=== PATIENT | male | born 1955 | race Caucasian/White ===

== ENCOUNTER 2017-10-18 18:44 | Emergency (ER) | payer BC, OTHER ==
[2017-10-18] MEDS ORDERED: PROCAINAMIDE 1,000 MG in SODIUM CHLORIDE 0.9% 240 ML IV STA (19:40)
--- NOTE | 2017-10-18 19:42 | ED Physician Documentation ---
PD HPI CHEST PAIN - Stated complaint Stated Complaint: HEART PALPITATIONS - Chief complaint Chief Complaint: Cardiac - History obtained from History obtained from: Patient - History of Present Illness Timing - onset: Today (This is a very pleasant 62-year-old gentleman with history of aortic valve replacement, mechanical valve maintained on warfarin. He is also on metoprolol. He has recurrent atrial fibrillation about once a month and has had it for the last few hours. He usually responds to procainamide drip.) Review of Systems Constitutional: denies: Fever, Chills Cardiac: reports: Palpitations. denies: Chest pain / pressure, Pedal edema, Calf pain Respiratory: denies: Dyspnea PD PAST MEDICAL HISTORY - Allergies Allergies/Adverse Reactions: Allergies Allergy/AdvReac Type Severity Reaction Status Date / Time Penicillins Allergy Hives Verified 10/18/17 18:58 PD ED PE NORMAL - Vitals Vital signs reviewed: Yes - General General: Alert and oriented X 3, No acute distress - HEENT HEENT: PERRL, EOMI - Neck Neck: Supple, no meningeal sign, No bony TTP - Cardiac Cardiac: Other (Irregularly irregular with closing click) - Respiratory Respiratory: No respiratory distress, Clear bilaterally - Abdomen Abdomen: Non tender - Neuro Neuro: Alert and oriented X 3, Normal speech - Psych Psych: Normal mood, Normal affect Results - Vitals Vitals: Vital Signs - 24 hr 10/18/17 10/18/17 10/18/17 18:53 20:07 20:10 Temperature 36.2 C L Heart Rate 109 H 98 98 Respiratory 16 16 16 Rate Blood Pressure 140/74 H 114/71 119/81 H O2 Saturation 100 96 10/18/17 10/18/17 10/18/17 20:15 20:20 20:25 Temperature Heart Rate 93 99 95 Respiratory 16 Rate Blood Pressure 137/75 H 112/93 H 121/84 H O2 Saturation 96 96 96 10/18/17 10/18/17 10/18/17 20:30 20:40 20:50 Temperature Heart Rate 94 103 H 100 Respiratory 16 16 16 Rate Blood Pressure 129/100 H 115/65 117/70 O2 Saturation 96 96 96 10/18/17 10/18/17 20:55 21:05 Temperature Heart Rate 63 64 Respiratory 16 Rate Blood Pressure 117/70 113/62 O2 Saturation 97 96 Oxygen O2 Source Room air - EKG (time done) 1902 Rate: Rate (enter#) (111) Rhythm: Atrial fibrillation [place]: Normal QRS: Normal Ischemia: Normal ST segments Computer interpretation: Agree with computer - Labs Labs: Laboratory Tests 10/18/17 10/18/17 19:25 19:25 WBC 6.7 RBC 4.95 Hgb 15.3 Hct 45.9 MCV 92.8 MCH 30.9 MCHC 33.3 RDW 13.3 Plt Count 115 L MPV 9.4 Neut # 4.4 Lymph # 1.4 L [place] # 0.7 Eos # 0.2 Baso # 0.0 Absolute Nucleated RBC 0.00 Nucleated RBC % 0.0 Sodium 140 Potassium 4.4 Chloride 103 Carbon Dioxide 30 Anion Gap 7.0 BUN 24 H Creatinine 1.1 Estimated GFR (MDRD) 68 L Glucose 106 H Calcium 10.0 Magnesium 2.2 Total Bilirubin 0.7 AST 28 ALT 25 Alkaline Phosphatase 48 Total Protein 7.4 Albumin 4.7 Globulin 2.7 Albumin/Globulin Ratio 1.7 PD MEDICAL DECISION MAKING - ED course ED course: His INR is therapeutic is 2.6. He was administered procainamide drip at [facility] through he converted to sinus rhythm without recurrence. Departure - Departure Disposition: 01 Home, Self Care Clinical Impression: Atrial fibrillation Qualifiers: Atrial fibrillation type: paroxysmal Qualified Code(s): I48.0 - Paroxysmal atrial fibrillation Condition: Good Record reviewed to determine appropriate education?: Yes Instructions: Atrial Fibrillation Dc Comments: Return if worse. Talk with your in house cra about potentially a "pill in the pocket" regimen.
[2017-10-18 19:51] LABS: BASOPHILS % (AUTO) 0.5 %; EOSINOPHILS # (AUTO) 0.2 10^3/uL (0.0-0.7); EOSINOPHILS % (AUTO) 2.4 %; HGB - HEMOGLOBIN 15.3 g/dL (14.0-18.0); LYMPHOCYTES # (AUTO) 1.4 10^3/uL (1.5-3.5); LYMPHOCYTES % (AUTO) 21.4 %; MEAN CORPUSCULAR HEMOGLOBIN 30.9 pg (27.0-31.0); MEAN CORPUSCULAR HGB CONC 33.3 g/dL (32.0-36.0); MEAN CORPUSCULAR VOLUME 92.8 fL (80.0-94.0); MEAN PLATELET VOLUME 9.4 fL (7.4-11.4); MONOCYTES # (AUTO) 0.7 10^3/uL (0.0-1.0); NEUTROPHILS # (AUTO) 4.4 10^3/uL (1.5-6.6); NEUTROPHILS % (AUTO) 65.7 %; PLT - PLATELET COUNT 115 10^3/uL (130-450); RED BLOOD COUNT 4.95 10^6/uL (4.70-6.10); RED CELL DISTRIBUTION WIDTH 13.3 % (12.0-15.0); WHITE BLOOD COUNT 6.7 x10^3/uL (4.8-10.8)
[2017-10-18 19:57] LABS: ALBUMIN 4.7 g/dL (3.2-5.5); ALBUMIN/GLOBULIN RATIO 1.7 (1.0-2.2); BILIRUBIN,TOTAL 0.7 mg/dL (0.2-1.0); CREATININE 1.1 mg/dL (0.6-1.2); MAGNESIUM 2.2 mg/dL (1.7-2.8); TOTAL PROTEIN 7.4 g/dL (6.7-8.2)
[2017-10-18] MEDS ORDERED: SODIUM CHLORIDE 0.9% 1,000 ML IV ONE (19:58)
[2017-10-18 21:33] VITALS: BP 131/72
== END 2017-10-18 21:36 | disposition home or self-care (01) ==
LOC: ED 18:44
DX: I48.0 Paroxysmal atrial fibrillation (principal); Z95.4 Presence of other heart-valve replacement; Z79.01 Long term (current) use of anticoagulants
CPT/HCPCS: 36415; 80053; 83735; 85025; 85610; 93005; 96365; 99284; J2690